=== PATIENT | female | born 1955 | race Caucasian/White ===

== ENCOUNTER 2017-03-13 00:32 | Day surgery (SDC) | payer OTHER ==
[~2017-03-13] VITALS: Ht 154.9 cm; Wt 88.2 kg
[2017-03-13] VITALS (13 sets, daily range): BP systolic 106–150; BP diastolic 48–99; PULSE 61–95; RESP 15–22; O2SAT 95–99
[~2017-03-13 00:32] MED LIST: APIX5TAB PO; CHOL200047 PO; FLC50T PO; HYDR12.55 PO; LOSA50TA37 PO; METO25TA6 PO; OMEP20CA11 PO; RANI150T11 PO; SIMV40TA5 PO
[2017-03-13 11:40] LABS: BASOPHILS % (AUTO) 0.5 % (0-3); EOSINOPHILS % (AUTO) 6.1 % (0-5); MONOCYTES % (AUTO) 10.5 % (4-12); Mean Corpuscular Hemoglobin 27.1 pg (27.0-35.0); Mean Corpuscular Volume 83.7 fL (81-100); NEUTROPHILS % (AUTO) 47.6 % (40-74); Platelet Count 210 bil/L (150-400)
--- NOTE | 2017-03-13 11:40 | NUR ---
SHELIA ADMIT 61 YR OLD FEMALE ADMITTED TO [facility] FOR ABLATION TODAY AT 1100. IV STARTED PER IVT, LABS SENT, AND QUESTIONS ANSWERED.
[2017-03-13 11:57] LABS: INR 1.04 ratio
[2017-03-13] MEDS ORDERED: Heparin 10,000 Unit/1,000 mL NS Premix IV ONE (14:20)
[2017-03-13] MEDS ORDERED: Heparin 1,000 Unit/mL 10 mL Inj ONE (14:20)
[2017-03-13] MEDS ORDERED: fentaNYL-PF 50 mCg/mL 2 mL Inj ONE ×2 (14:38→15:22)
[2017-03-13] MEDS ORDERED: HYDROcodone-APAP 5-325 mg Tablet PO PRN (16:25)
[2017-03-13] MEDS ORDERED: Ondansetron 2 mg/mL 2 mL Inj IVPUSH PRN (16:25)
--- NOTE | 2017-03-13 20:58 | NUR ---
SHELIA DISCHARGE PT WAS RECEIVED FROM [employer] [employer] AT 1635. RIGHT GROIN HAS REMAINED SOFT, NON TENDER, NO BLEEDING OR HEMATOMA NOTED. POST EKG OBTAINED, PT IN SR 60-70. SHE IS COMPLIANT WITH BEDREST AND TAKING PO FLUIDS AND MEAL. BEDREST COMPLETED AND PT AMBULATED IN [place] AND USED THE BATHROOM. RIGHT GROIN REMAINED STABLE. DISCHARGE INSTRUCTIONS INCLUDING MEDICATIONS, F/U APPT, AND POST SEDATION AND CARDIAC ABLATION INSTRUCTIONS WERE REVIEWED AND PT VERBALIZED UNDERSTANDING. SHE WAS DISCHARGED AT 2050 IN STABLE CONDITION WITH .
--- NOTE | 2017-03-14 05:43 | PROCED ---
[address] [address] PROCEDURE NOTE PATIENT: MISAEL CHAN : 1955 MR#: [id number] ADMIT: 03/13/2017 JOB ID: [id number] DATE OF SERVICE: 03/13/2017 PREOPERATIVE DIAGNOSIS(ES): Atrial flutter. POSTOPERATIVE DIAGNOSIS(ES): Normal sinus rhythm. PROCEDURE PERFORMED: 1. Comprehensive electrophysiology study with left atrial pacing recording via the coronary sinus catheter. 2. Three-dimensional electroanatomic mapping using the CARTO 3 system. 3. Atrial flutter ablation (supraventricular tachycardia ablation; cavotricuspid isthmus ablation). 4. Fluoroscopy. SURGEON: Lawson Teran MD, electrophysiology. TRUCKER: 1. Katie Matias. 2. Tessa Alfonso. ANESTHESIA: Bolus dosing of Versed and fentanyl were utilized for appropriate level of sedation. INDICATION: The patient is a pleasant 61-year-old woman with a structurally normal heart who has recurrent symptomatic drug refractory atrial flutter. After discussion of risks and benefits of catheter based mapping ablation, she opted to proceed. PROCEDURAL DESCRIPTION: Following informed consent, the patient was taken to the EP laboratory in a fasting nonsedated state, where she was prepped in usual sterile fashion. The right inguinal region was infiltrated with 1% lidocaine. Then, using modified Seldinger technique, one 8 and two 7-Sinhala sheaths were inserted into the right femoral vein. Under fluoroscopic guidance, a Livewire 20 pole catheter was advanced and used to encircle the tricuspid anulus. A Bard decapolar catheter was advanced and with great difficulty the first two distal bipoles were advanced into the coronary sinus. A J curve J curve SmartTouch irrigated ablation catheter was brought to the field and used to create a three-dimensional electroanatomic map of the right atrium, tricuspid anulus and cavotricuspid isthmus. The patient was in atrial flutter at the onset of the case. Entrainment was undertaken from cavotricuspid isthmus at six o'clock position post pacing interval minus tachycardia cycle length was 9 msec, consistent with an isthmus dependent flutter. This was a reverse typical flutter with a clockwise pattern. A linear series of ablation was performed from the ventricle to the IVC aspect of the cavotricuspid isthmus, ultimately leading to break of flutter. High voltage electrograms were targeted. We then paced from the coronary sinus os, monitoring atrial activation pattern on the Livewire catheter. Medial to lateral block was confirmed. Lateral to medial was confirmed. A 20 minute waiting period was undertaken during, which bidirectional block was reconfirmed. During the course of this study, we did complete a comprehensive electrophysiology study with right atrial pacing recording, right ventricular recording, His bundle recording, left atrial pacing coronary sinus catheter. All catheters and sheaths were removed. Manual pressure was held for hemostasis. The patient was transferred to the [facility] for monitoring, bed rest and discharge. COMPLICATIONS: None. ESTIMATED BLOOD LOSS: Negligible. FINDINGS: 1. Baseline rhythm is atrial flutter. Post ablation, she was in sinus rhythm with an RR interval of 1030 msec, NM 236 msec, QRS 98 msec, QT 450 msec. 2. Intracardiac intervals: AH interval 140 m/sec, HV 48 msec. 3. Retrograde conduction: No VA conduction was seen. 4. Cavotricuspid isthmus ablation as described above for reverse typical atrial flutter with bidirectional block, specifically transisthmus time is 204 msec in both directions. IMPRESSION: Successful cavotricuspid isthmus ablation for reverse typical atrial flutter. PLAN: 1. Bed rest x4 hours. 2. Resume Eliquis immediately for at least one month. 3. Follow up with Adi Villatoro in clinic in four weeks and with Dr. Cummings thereafter. ATTENDING STATEMENT: Lawson Teran MD, electrophysiology attending, was present for and supervised/performed all aspects of this procedure.
== END 2017-03-13 23:59 | disposition home or self-care (01) ==
LOC: SOUO 00:32 → EDSTATUS 13:09 → SOUO 23:59
PROVIDERS: ATTEND Internal Medicine Cardiovascular Disease
DX: I48.3 Typical atrial flutter (principal); I10 Essential (primary) hypertension; E78.00 Pure hypercholesterolemia, unspecified; I48.0 Paroxysmal atrial fibrillation; I47.1 Supraventricular tachycardia; Z79.82 Long term (current) use of aspirin; Z79.01 Long term (current) use of anticoagulants
CPT/HCPCS: 36415; 80048; 85025; 85610; 93005; 93613; 93621; 93653; 99152; 99153; C1730; C1731; C1732; C1893; J0131; J1644; J2060; J2250; J3010; J7030

== ENCOUNTER 2017-04-13 15:25 | Emergency (ER) | payer OTHER ==
[~2017-04-13] VITALS: Ht 154.9 cm; Wt 90.9 kg
[2017-04-13 15:27] VITALS: BP 150/81; PULSE 131; RESP 18; O2SAT 99
--- NOTE | 2017-04-13 15:32 | ED.REPORT ---
HPI-General Illness Date of Service Apr 13, 2017 ED Provider: Francisco J Grimes MD Patient is a 61 year old female with a history of hypertension who presents to the ED for tachycardia. She denies feeling faint, chest pain, cough, fever or chills. Patient reports that she did have an episode of abdominal pain and diarrhea this morning. She was scheduled to see Dr. Cummings today and while at the office, her EKG showed atrial fibrillation so they told her to come to the ED. Patient was seen on 03/13/17 for a comprehensive electrophysiology study with left atrial pacing recording via the coronary sinus catheter and atrial flutter ablation (supraventricular tachycardia ablation;cavotricuspid isthmus ablation) . Patient states she is still taking the Eliquis. Nursing Notes Stated Complaint: POSS A FIB Chief Complaint: Dysrhythmia/Cardiac Nursing Notes Reviewed: Yes Allergies: Coded Allergies: No Known Allergies (Unverified , 04/13/17) Scheduled Apixaban (Eliquis) 5 Mg Tablet 5 MG PO BID Cholecalciferol (Vitamin D3) (Vitamin D3) 2,000 Unit Capsule 2,000 UNIT PO DAILY Flecainide Acetate (Flecainide Acetate) 50 Mg Tablet 50 MG PO BID Hydrochlorothiazide (Hydrochlorothiazide) 12.5 Mg Tablet 12.5 MG PO DAILY Losartan Potassium (Losartan Potassium) 50 Mg Tablet 50 MG PO DAILY Metoprolol Tartrate (Metoprolol Tartrate) 25 Mg Tablet 37.5 MG PO BID Omeprazole (Omeprazole) 20 Mg Capsule.dr 20 MG PO BID Ranitidine (Zantac) 150 Mg Tablet 150 MG PO BID Simvastatin (Simvastatin) 40 Mg Tablet 40 MG PO HS General Time Seen by MD: 15:32 Chief Complaint Other (tachycardia) Hx Obtained From: Patient Arrived By: Walk-in Sudden in Onset?: Yes Onset Occurred: Just prior to arrival Symptom Duration: Since onset Severity: Current: No pain currently Recent Healthcare: Recent doctor visit Past Medical History Past Medical History Reports: Hypertension Social History Other Social History: Good social support Ambulatory Status Independent Review of Systems Full Review of Systems Constitutional: Denies: Chills, Fever Respiratory: Denies: Non-productive cough, Shortness of breath Cardiovascular: Reports: Palpitations, Denies: Chest pain GI: Reports: Abdominal pain, Diarrhea Neurologic: Denies: Lightheaded, Syncope, Weakness Complete sys rev & neg: except as marked. Physical Exam Vital Signs Vital Signs Date Time Temp Pulse Resp B/P Pulse Ox O2 Delivery O2 Flow Rate FiO2 04/13/17 17:59 98 18 141/89 98 04/13/17 17:06 114 21 125/83 100 Room Air 04/13/17 15:27 37.9 131 18 150/81 99 Room Air Initial VS: Reviewed General/Constitutional: Awake, Alert, No acute distress Head / Eyes: Atraumatic, Normocephalic, PERRL, EOMI Neck: Atraumatic, Supple Respiratory / Chest: Atraumatic, Breath sounds NL, Breath sounds = bilat, No respiratory distress Cardiovascular: Heart sounds NL Heart Rate / Rhythm: Positive: Irregular rhythm, Tachycardia Skin: Atraumatic, Color NL, No rash, Warm, Dry Neurologic: Oriented X3, Speech NL, No motor deficits, No sensory deficits Psychiatric: Affect NL, Mood NL Interpretation & Diagnostics Lab Results Interpretation Result Diagram: 04/13/17 1652 04/13/17 1652 Test 04/13/17 15:57 04/13/17 16:52 Hold Urine Received (Received) White Blood Count 8.0th/mm3 (3.8-10.1) Red Blood Count 4.69mil/mm3 (3.90-5.20) Hemoglobin 12.7g/dL (12.0-15.6) Hematocrit 38.7% (35.0-46.0) Mean Corpuscular Volume 82.5fL (81-100) Mean Corpuscular Hemoglobin 27.1pg (27.0-35.0) Mean Corpuscular Hemoglobin Concent 32.8% (32.0-37.0) Red Cell Distribution Width 18.6% (12.3-15.4) Platelet Count 195bil/L (150-400) Neutrophils (%) (Auto) 49.3% (40-74) Lymphocytes (%) (Auto) 35.8% (14-46) Monocytes (%) (Auto) 10.6% (4-12) Eosinophils (%) (Auto) 3.9% (0-5) Basophils (%) (Auto) 0.2% (0-3) Sodium Level 140mEq/L (134-144) Potassium Level 3.9mEq/L (3.5-5.2) Chloride Level 101mEq/L (97-108) Carbon Dioxide Level 25mmol/L (18-29) Blood Urea Nitrogen 17mg/dL (8-27) Creatinine 0.54mg/dL (0.57-1.00) Estimat Glomerular Filtration Rate 165mL/min (>59) Glucose Level 114mg/dL (60-99) Calcium Level 9.3mg/dL (8.5-10.1) Magnesium Level 1.6mg/dL (1.6-2.6) Total Bilirubin 0.5mg/dL (0.0-1.2) Aspartate Amino Transf (AST/SGOT) 16U/L (0-50) Alanine Aminotransferase (ALT/SGPT) 20U/L (0-32) Alkaline Phosphatase 60U/L (25-165) Total Protein 6.8g/dL (6.4-8.4) Albumin 4.3g/dL (3.4-5.0) Hold Herring Top Tube Received (Received) ECG Interpretation ECG Interpretation: atrial fibrillation, rate 136 Qs in lead [address] segment changes Time: 16:17 Interpreted by: ED physician Time: 18:09 Interpreted by: ED physician Normal ECG Interpretation: Normal rate (64), Normal sinus rhythm Re-Eval/Medical Decision Time of Eval: 18:41 Patient Status: Condition improved Re-Evaluation/Progress Note: Discussed all results and plan for discharge. Patient understands and agrees to natalia. All questions were addressed. Consultation #1: Referral / Consult Name: Betina Cummings MD Consulted With: Cardiology Call Returned at: 16:01 Endodontic Assistant: Will see patient, Agrees with eval, Agrees with plan Note: Consult with Dr. Cummings who recommends giving the patient PO Flecainide. Consultation #2: Referral / Consult Name: Betina Cummings MD Call Returned at: 18:15 Note: Dr. Cummings recommends sending the patient home with more Flecainide Counseled Regarding: Diagnosis, Lab results, Need for follow-up, When/why to return to ED Discharge & Departure Primary Impression: Atrial fibrillation with RVR Disposition: Home Discharge Condition All VS Reviewed: Yes Condition: Stable Patient Instructions: A-fib (Atrial Fibrillation) (ED) Additional Instructions: Emergency Department evaluation included interview, examination, labs and ECG and cardiology consultation. After treatment with oral flecainide sinus rhythm is restored. As advised by cardiology, increased flecainide to 100 mg twice daily. If you experience recurrence of atrial fibrillation takes flecainide 300 mg and lie down to rest. Call the cardiology office if you do this. Maximum total daily flecainide dose should be no more than 400 mg. Cardiology will contact you for follow-up. Continue other previous home medications Return to emergency department for chest pain shortness of breath feeling faint or if unsuccessful in restoring regular rhythm with oral flecainide Referrals: Kendra Bean PA-C (PCP) Betina Cummings MD Attestation Portions of this note were transcribed by Lety Rene. I, Dr. Grimes personally performed the history, physical exam and medical decision-making; I reviewed and confirmed the accuracy of the information in the transcribed note. Signed by:Quintin Yusuf, 04/13/17 copies to: Kendra Bean PA-C; Betina Cummings MD, Donald L MD Apr 13, 2017 15:32 Suzan Rene Apr 13, 2017 15:59
[2017-04-13 16:58] LABS: BASOPHILS % (AUTO) 0.2 % (0-3); EOSINOPHILS % (AUTO) 3.9 % (0-5); MONOCYTES % (AUTO) 10.6 % (4-12); Mean Corpuscular Hemoglobin 27.1 pg (27.0-35.0); Mean Corpuscular Volume 82.5 fL (81-100); NEUTROPHILS % (AUTO) 49.3 % (40-74); Platelet Count 195 bil/L (150-400)
[2017-04-13 17:06] VITALS: BP 125/83; PULSE 114; RESP 21; O2SAT 100
[2017-04-13 17:14] LABS: Magnesium 1.6 mg/dL (1.6-2.6)
[2017-04-13 17:59] VITALS: BP 141/89; PULSE 98; RESP 18; O2SAT 98
--- NOTE | 2017-04-14 03:21 | CONS ---
[address] [address] CONSULTATION REPORT PATIENT: MISAEL CHAN : 1955 MR#: [id number] ADMIT: 04/13/2017 JOB ID: [id number] CARDIOLOGY CONSULTATION: DATE OF SERVICE: 04/13/2017 CHIEF COMPLAINT: AFib with RVR. HISTORY OF PRESENT ILLNESS: The patient is a 61-year-old woman with paroxysmal A. flutter, status post ablation about a month ago. She was doing well, but went to her primary care provider's office for a routine visit to get a refill of her proton pump inhibitor medication. During that physical exam, she was found to be tachycardiac. EKG unfortunately confirmed coarse atrial fibrillation with rapid ventricular response and a heart rate above 130 beats per minute. The patient was minimally symptomatic. However, due to unstable vital signs, she was directed to the emergency department. Cardiology is consulted to assist with management. PAST MEDICAL HISTORY: 1. Paroxysmal A. flutter, status post recent ablation, performed March 13, 2017. 2. Heartburn. 3. Chronic diarrhea. PAST SURGICAL HISTORY: None. SOCIAL HISTORY: She recently quit smoking. FAMILY HISTORY: No family history of atrial flutter. REVIEW OF SYSTEMS: No fevers, no chills, no cough, no shortness of breath. Review of systems is significant for heartburn and diarrhea. Otherwise, a 10-point review of systems is negative. HOME MEDICATIONS: 1. Flecainide 50 mg twice a day. 2. Metoprolol tartrate 25 mg tablets, one tablets twice a day. 3. Simvastatin 40 mg daily. 4. Hydrochlorothiazide 12.5 mg daily. 5. Zantac 150 mg twice a day. 6. Eliquis 5 mg twice a day. PHYSICAL EXAMINATION: A very pleasant woman in no apparent distress. Eyes: No scleral icterus. Blood pressure 141/89, pulse is 98 beats per minute, satting 98% on room air. A well-nourished woman in no apparent distress. Eyes: No scleral icterus. Neck: Supple. No lymphadenopathy. No carotid bruits. Heart: Normal S1, S2. No murmurs, rubs or gallops. Lungs: Clear to auscultation anteriorly. Abdomen: Soft. Positive bowel sounds. No hepatosplenomegaly. Extremities: Warm and well perfused. No clubbing, cyanosis or edema. Skin: No rashes or lesions. DATA: Labs reviewed significant for a low magnesium of 1.6. Otherwise, they are normal. Initial EKG demonstrates coarse AFib with rapid ventricular response. Heart rate is above 130 beats per minute. After cardioversion chemically with flecainide, EKG demonstrated normal sinus rhythm at 60 beats per minute. Some T-wave inversion in the precordial leads, which is likely flecainide-related. ASSESSMENT AND PLAN: In summary, this is a 61-year-old woman, with a structurally normal heart, who had a comprehensive electrophysiologic study on March 13 and flutter ablation. The patient comes in with a coarse atrial fibrillation. The plan for this patient was to give her 300 mg of flecainide trial pill in the approach. It worked and normal sinus rhythm was restored. She is feeling good. The trigger for this episode is thought to be low magnesium. She will be started on magnesium supplements. Also, I increased her flecainide from 50 mg daily to 100 mg daily. We will schedule close outpatient followup for further monitoring. I recommend for her to start magnesium supplement one tablet twice a day. Thank you very much for the opportunity to evaluate this patient.
== END 2017-04-13 18:54 | disposition home or self-care (01) ==
LOC: SED 15:25
DX: I48.91 Unspecified atrial fibrillation (principal); I11.9 Hypertensive heart disease without heart failure; R19.7 Diarrhea, unspecified